=== PATIENT | male | born 1985 | race Caucasian/White ===

== ENCOUNTER 2016-08-13 10:01 | Emergency (ER) | payer MEDICAID ==
[~2016-08-13] VITALS: Ht 182.9 cm; Wt 122.5 kg
[~2016-08-13 10:01] MED LIST: ARIP20TA5 PO; BENZ2TAB2 PO; LITH300T5 PO; OMEP20CA5 OR; PAR20T PO; PROM25TA5 PO; RANI-226 PO; TRAZ300T13 PO
[2016-08-13 10:18] VITALS: BP 124/72
== END 2016-08-13 11:36 | disposition home or self-care (01) ==
LOC: ER 10:05
DX: S09.90XA Unspecified injury of head, initial encounter (principal); F17.210 Nicotine dependence, cigarettes, uncomplicated; F12.10 Cannabis abuse, uncomplicated; Z88.3 Allergy status to other anti-infective agents; Z88.1 Allergy status to other antibiotic agents; Y08.89XA Assault by other specified means, initial encounter; Y93.89 Activity, other specified; Y99.8 Other external cause status; Y92.89 Other specified places as the place of occurrence of the external cause
CPT/HCPCS: 70450

== ENCOUNTER 2019-04-16 00:41 | Emergency (ER) | payer MEDICAID ==
[~2019-04-16] VITALS: Ht 188 cm; Wt 127.0 kg
[~2019-04-16 00:41] MED LIST changes: -ARIP20TA5 PO; -OMEP20CA5 OR; +OMEP20CA74 OR
[2019-04-16 00:52] VITALS: BP 145/89
[2019-04-16 01:29] LABS: Basophils # (auto) 0.1 uL; Basophils % (auto) 1.2 % (0.0-2.0); Eosinophils # (auto) 0.2 uL; Eosinophils % (auto) 1.8 % (0.0-7.0); Hematocrit 44.1 % (41.0-53.0); Hemoglobin 14.8 g/dL (13.5-17.5); Lymphocytes # (auto) 3.5 uL; Lymphocytes % (auto) 30.7 % (10.0-50.0); Mean Corpuscular Hgb Conc. 33.5 g/dL (32.0-36.0); Mean Corpuscular Volume 89.6 fL (80.0-100.0); Monocytes # (auto) 0.7 uL; Monocytes % (auto) 6.5 % (0.0-12.0); Neutrophils # (auto) 6.7 uL; Neutrophils % (auto) 59.8 % (37.0-80.0); Nucleated Red Blood Cells % 0.1 %; Platelet Count (auto) 231 10^3/uL (140-450); Red Blood Cells 4.92 10^6/uL (4.5-5.90); Red Cell Distribution Width 13.5 % (11.8-14.3); White Blood Cell 11.2 10^3/uL (4.4-10.8)
[2019-04-16 01:44] LABS: Urine Bacteria FEW /hpf (None Seen); Urine Blood Negative /uL (Negative); Urine Specific Gravity 1.011 (1.001-1.035); Urine WBC 1 /hpf (0 - 3)
[2019-04-16 01:52] LABS: Calcium 8.8 mg/dL (8.5-10.1); Potassium 3.9 mmol/L (3.5-5.1)
[2019-04-16 01:52] LABS: Amphetamine Screen, Urine NEGATIVE (NEGATIVE); Barbiturate Scree,Urine NEGATIVE (NEGATIVE); Benzodiazephine Screen, Urine POSITIVE (NEGATIVE); Cannabinoid Screen, Urine POSITIVE (NEGATIVE); Cocaine Screen, Urine NEGATIVE (NEGATIVE); Opiate Scree,Urine NEGATIVE (NEGATIVE); Phencyclidine Screen, Urine NEGATIVE (NEGATIVE)
[2019-04-16 01:53] LABS: Acetaminophen < 2.0 ug/mL (10-30); Salicylate 3.5 mg/dL (2.8-20.0)
[2019-04-16 01:55] LABS: Albumin 4.2 g/dL (3.4-5.0); BUN/Creatinine Ratio 9.2
[2019-04-16 02:08] LABS: Bilirubin, Total 0.3 mg/dL (0.2-1.0); Total Protein 7.3 g/dL (6.4-8.2)
== END 2019-04-16 01:31 | disposition left against medical advice (07) ==
LOC: EDBD 00:41 → ER 00:46
DX: F32.9 Major depressive disorder, single episode, unspecified (principal); R45.851 Suicidal ideations; F41.9 Anxiety disorder, unspecified; F20.9 Schizophrenia, unspecified; F17.210 Nicotine dependence, cigarettes, uncomplicated; F12.10 Cannabis abuse, uncomplicated; F15.10 Other stimulant abuse, uncomplicated
CPT/HCPCS: 36415; 80053; 80307; 80329; 81001; 85025